=== PATIENT | male | born 1935 | race Caucasian/White ===

== ENCOUNTER 2018-06-03 22:37 | Inpatient (IN) | payer OTHER ==
[~2018-06-03] VITALS: Ht 165.1 cm; Wt 43.1 kg
--- NOTE | ~2018-06-03 | EKG ---
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1935 Requested By: Dolly Rabago Order Number: [id number] MD: Maldonado Mcguire Measurements Intervals Muse Rate: 93 P: 50 IN: 218 QRS: -27 QRSD: 116 T: -74 QT: 383 QTc: 477 Interpretive Statements Sinus rhythm Prolonged IN interval Nonspecific ST and T wave abnormality Anteroseptal infarct, old No previous ECG available for comparison Electronically Signed On 06-04-2018 10:39:23 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
[2018-06-03 22:38] VITALS: BP 140/90
[2018-06-03 23:48] LABS: BASOPHILS 0.2 % (0.0-2.0); HEMATOCRIT 50.6 % (42.0-52.0); HEMOGLOBIN 16.7 gm/dL (14.0-18.0); LYMPHOCYTES 8.7 % (24.0-44.0); MCH 31.8 pg (26.0-34.0); MCV 96.4 fL (80.0-100.0); MONOCYTES 8.7 % (1.0-8.0); PLATELET COUNT 187 thou/uL (150-400); POLYS 82.4 % (36.0-66.0); RBC 5.25 mil/uL (4.50-6.00)
[2018-06-04 00:04] LABS: ANION GAP 10 mmol/L (7-16); BUN 100 mg/dL (7-18); CALCIUM 10.8 mg/dL (8.5-10.1); CHLORIDE 115 mmol/L (98-107); CO2 33 mmol/L (21-32); GLUCOSE 328 mg/dL (74-106); POTASSIUM 4.6 mmol/L (3.5-5.1); SODIUM 158 mmol/L (136-145)
[2018-06-04 00:08] LABS: ALBUMIN 4.6 g/dL (3.4-5.0); DIRECT BILIRUBIN 0.2 mg/dL (<0.1-0.3); LIPASE 120 U/L (73-393); SGOT 21 U/L (15-37); SGPT 20 U/L (30-65); TOTAL BILIRUBIN 1.1 mg/dL (<0.1-1.0); TOTAL PROTEIN 9.4 g/dL (6.4-8.2); TROPONIN-I <0.06 ng/mL (<0.06)
[2018-06-04 00:50] LABS: URINE BILIRUBIN NEGATIVE (Negative); URINE BLOOD 2+ (Negative); URINE CLARITY CLEAR; URINE COLOR YELLOW; URINE GLUCOSE-RANDOM* 2+ (Negative); URINE KETONES TRACE (Negative); URINE LEUKOCYTES-REFLEX NEGATIVE (Negative); URINE NITRITE-REFLEX NEGATIVE (Negative); URINE PROTEIN (DIPSTICK) NEGATIVE (Negative); URINE SPECIFIC GRAVITY >= 1.030 (1.005-1.035); URINE UROBILINOGEN 0.2 E.U./dl (0.2-1.0)
[2018-06-04 00:59] LABS: MUCUS 4-6 Moderate strn/LPF (None Seen); SQUAMOUS 4-10 Moderate /LPF (0-3)
[2018-06-04 01:00] LABS: AMORPHOUS URATES Few /LPF (None Seen); CRYSTALS None Seen /LPF (None Seen); HYALINE CASTS 4-10 Moderate /LPF (None Seen); URINE WBC-REFLEX 0-5 Rare /HPF (0-5)
[2018-06-04] MEDS ORDERED: DORZOLAMIDE-TI1 EACH OPHTHALMIC (01:03)
[2018-06-04] MEDS ORDERED: HUMALOG100 UNIT/2 SUBQ (01:04)
[2018-06-04] MEDS ORDERED: SEROQUEL 25 MG25 M1 PO (01:06)
[2018-06-04] MEDS ORDERED: SEROQUEL 50 MG50 M1 PO (01:06)
[2018-06-04] MEDS ORDERED: NEUPRO1 EAC1 TOP (01:07)
[2018-06-04] MEDS ORDERED: TYLENOL325 MG PO (01:07)
[2018-06-04] MEDS ORDERED: SENNA8.6 MG PO (01:07)
[2018-06-04] MEDS ORDERED: SINEMET 25-2501 EAC1 PO (01:08)
[2018-06-04] MEDS ORDERED: CHILDREN'S ASPI81 M1 PO (01:08)
[2018-06-04] MEDS ORDERED: MIRALAX17 GM PO (01:09)
[2018-06-04] MEDS ORDERED: XALATAN2.5 ML OPHTHALMIC (01:09)
[2018-06-04 02:55] VITALS: BP 142/97
[2018-06-04 03:15] VITALS: BP 165/106
[2018-06-04 08:00] VITALS: BP 131/80
[2018-06-04 09:18] LABS: CALCIUM 9.4 mg/dL (8.5-10.1); CREATININE 1.6 mg/dL (0.7-1.3); POTASSIUM 3.9 mmol/L (3.5-5.1)
[2018-06-04 16:00] VITALS: BP 137/82
[2018-06-04 19:57] VITALS: BP 126/75
[2018-06-05 03:51] VITALS: BP 138/88
[2018-06-05 04:20] LABS: CALCIUM 8.8 mg/dL (8.5-10.1); POTASSIUM 3.4 mmol/L (3.5-5.1)
[2018-06-05 04:42] LABS: HEMATOCRIT 33.2 % (42.0-52.0); MCH 32.6 pg (26.0-34.0); MCHC 34.1 g/dL (28.0-37.0); MCV 95.8 fL (80.0-100.0); RBC 3.46 mil/uL (4.50-6.00); RDW 14.6 % (10.5-14.5); WBC 6.3 thou/uL (4.0-11.0)
[2018-06-05 04:57] LABS: HEMOGLOBIN 11.3 gm/dL (14.0-18.0)
[2018-06-05 08:12] VITALS: BP 123/85
[2018-06-05] MEDS ORDERED: ASPIR 8181 MG PO (11:37)
[2018-06-05 15:05] VITALS: BP 136/77
[2018-06-05 20:10] VITALS: BP 124/88
[2018-06-06 04:00] VITALS: BP 127/69
[2018-06-06 04:12] LABS: HEMATOCRIT 32.1 % (42.0-52.0); MCH 32.4 pg (26.0-34.0); MCHC 34.1 g/dL (28.0-37.0); MCV 94.9 fL (80.0-100.0); RBC 3.38 mil/uL (4.50-6.00); RDW 14.5 % (10.5-14.5); WBC 4.9 thou/uL (4.0-11.0)
[2018-06-06 04:26] LABS: CALCIUM 8.4 mg/dL (8.5-10.1); CREATININE 0.8 mg/dL (0.7-1.3); MAGNESIUM 1.7 mg/dL (1.8-2.4); POTASSIUM 3.4 mmol/L (3.5-5.1)
[2018-06-06 07:40] VITALS: BP 118/73
[2018-06-06] MEDS ORDERED: ATIVAN0.5 MG SUBLING (13:07)
[2018-06-06] MEDS ORDERED: MSL20MG/ML SUBLING (13:07)
[2018-06-06 14:18] VITALS: BP 118/73
[2018-06-06 14:44] VITALS: BP 122/61
== END 2018-06-06 18:07 | disposition hospice, home (50) | DRG 871 ==
LOC: ER 22:37 → EROBS 06-04 01:16 → 4W 06-04 01:16
PROVIDERS: Emergency Medicine; Internal Medicine; Nurse Practitioner Acute Care
DX: A41.9 Sepsis, unspecified organism (principal); G92 Toxic encephalopathy; N17.9 Acute kidney failure, unspecified; E87.0 Hyperosmolality and hypernatremia; N39.0 Urinary tract infection, site not specified; E46 Unspecified protein-calorie malnutrition; Z68.1 Body mass index [BMI] 19.9 or less, adult; F05 Delirium due to known physiological condition; G20 Parkinson's disease; F02.80 Dementia in other diseases classified elsewhere, unspecified severity, without behavioral disturbance, psychotic disturbance, mood disturbance, and anxiety; E78.5 Hyperlipidemia, unspecified; E86.0 Dehydration; D64.9 Anemia, unspecified; N18.3 Chronic kidney disease, stage 3 (moderate); E11.22 Type 2 diabetes mellitus with diabetic chronic kidney disease; Z79.4 Long term (current) use of insulin; Z79.82 Long term (current) use of aspirin; Z79.899 Other long term (current) drug therapy
CPT/HCPCS: 10045